=== PATIENT | male | born 1985 | race Hispanic/Latino ===

== ENCOUNTER 2020-10-28 21:13 | Emergency (ER) | payer SELFPAY ==
[2020-10-28 21:18] VITALS: BP 137/92
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
[2020-10-28] MEDS ORDERED: ACETAMINOPHEN 500 MG TAB PO ONE (21:36)
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
== END 2020-10-28 23:24 | disposition home or self-care (01) ==
LOC: ED 21:13
DX: S00.83XA Contusion of other part of head, initial encounter (principal); S00.93XA Contusion of unspecified part of head, initial encounter; S40.011A Contusion of right shoulder, initial encounter; I10 Essential (primary) hypertension; F12.10 Cannabis abuse, uncomplicated; Z79.899 Other long term (current) drug therapy; Y04.2XXA Assault by strike against or bumped into by another person, initial encounter; Y93.89 Activity, other specified; Y92.89 Other specified places as the place of occurrence of the external cause; Y99.8 Other external cause status
CPT/HCPCS: 70450; 70486; 71111; 72125